=== PATIENT | female | born 1950 | race Caucasian/White ===

== ENCOUNTER 2016-12-16 11:38 | Emergency (ER) | payer BC ==
[~2016-12-16] VITALS: Ht 149.9 cm; Wt 45.8 kg
[2016-12-16 11:38] VITALS: BP 144/92; PULSE 77; RESP 18; TEMP 98.2; O2SAT 100
[~2016-12-16 11:38] MED LIST: BENADRYL; BIRTH CONTROL PILLS PO; PREDNISONE; SULF1TAB48 PO; vitamins
== END 2016-12-16 12:30 | disposition left against medical advice (07) ==
LOC: SED 11:38
DX: M25.562 Pain in left knee (principal); G89.29 Other chronic pain; M81.0 Age-related osteoporosis without current pathological fracture; Z53.20 Procedure and treatment not carried out because of patient's decision for unspecified reasons
CPT/HCPCS: 99281